=== PATIENT | female | born 1940 | race Caucasian/White ===

== ENCOUNTER 2016-12-06 00:11 | Day surgery (SDC) | payer MEDICARE, OTHER ==
[~2016-12-06] VITALS: Ht 160 cm; Wt 80.7 kg
[2016-12-06] VITALS (13 sets, daily range): BP systolic 117–154; BP diastolic 50–78; PULSE 52–63; RESP 16–20; O2SAT 92–98
[~2016-12-06 00:11] MED LIST: ACET-2605 PO; ALBU8.5H2 IH; AMLO2.5T PO; ASPI81TA3 PO; BECL8.7A6 IH; CARV6.252 PO; CELE200C PO; CREST10T PO; DOCU-41 PO; DULO60CA42 PO; ESOM40CA41 PO; FURO40TA4 PO; HYDR-3825 PO; LEVO75TA36 PO; LISI2.5T PO; MULT-1018 PO; PREG300C PO; SOLI5TAB2 PO; SPIR25TA3 PO; TRAZ-118 PO; VITA1TAB47 PO
[2016-12-06 12:34] LABS: BASOPHILS % (AUTO) 0.7 % (0-3); EOSINOPHILS % (AUTO) 3.9 % (0-5); MONOCYTES % (AUTO) 14.1 % (4-12); Mean Corpuscular Hemoglobin 31.7 pg (27.0-35.0); Mean Corpuscular Volume 93.1 fL (81-100); NEUTROPHILS % (AUTO) 45.9 % (40-74); Platelet Count 202 bil/L (150-400)
[2016-12-06] MEDS ORDERED: LEVO112T4 PO (13:10)
[2016-12-06] MEDS ORDERED: Heparin 1,000 Unit/mL 10 mL Inj ONE (14:41)
[2016-12-06] MEDS ORDERED: Nitroglycerin 50,000 mcg/250 mL D5W Premix IV ONE (14:41)
[2016-12-06] MEDS ORDERED: Heparin 1,000 Units/500 mL NS Premix IV ONE (14:41)
[2016-12-06] MEDS ORDERED: Heparin 10,000 Unit/1,000 mL NS Premix IV ONE (14:41)
[2016-12-06] MEDS ORDERED: fentaNYL-PF 50 mCg/mL 2 mL Inj ONE (14:52)
--- NOTE | 2016-12-06 17:07 | PCM.CVCATH ---
Cardiac Cath Report Date of Service Dec 06, 2016 Primary Indication Abnormal stress test Procedure coronary angiography, left heart cath Vascular Access Right femoral artery using 6 Fr sheath, closure with manual hold. Diagnostic Catheters Left main: [place] 4.0, 6 Fr RCA: [place] 4.0, 6 Fr Procedure Details Coronary angiography details: The patient was brought to the cardiac catheterization lab in the fasting state. Patient was laid supine on the cardiac catheterization table and the right groin was prepped and draped in the usual sterile fashion. One percent Xylocaine was infiltrated into the right femoral vessels. Next, a sheath was then placed in the right common femoral artery by the modified Seldinger technique. Guide wire was used to advance the catheter through the sheath and up into aortic sinuses. After coronary angiography was completed, guide wire was advanced through the catheter ahead of the tip of the catheter and the guide wire along with the catheter were pulled together out of the sheath. Medications/Fluoro Time Medications administered: 1.Fentanyl: 50 mcg IV 2. Midazolam: 1 mg IV 3. Heparin: 0 units IV 4. Nitroglycerin: 0 mcg IA 5. Verapamil: 0 mg IA Blood loss: 10 mls Findings 1) Coronary angiography: Right dominance a. Left main is short and angiographically normal b. LAD is normal caliber with mild luminal irregularities with maximal stenosis of about 25-30% in the proximal to mid vessel. There are four diagonal arteries with no significant angiographic disease. c. LCx is medium caliber vessel with mild luminal irregularities. d. RCA is normal caliber with patent stent with about 25% stenosis in the proximal vessel. The stent has diffuse mild in-stent restenosis. 2) Left Heart catheterization: a. LVEDP is elevated at 19 mmHg. b. No significant transaortic gradient on catheter pull-back. Complications There were no periprocedural complications identified. Summary 1) Non-obstructive coronary artery disease. 2) Mildly elevated left sided filling pressures with LVEDP of 19mmHg. Recommendations Continue with medical management of CAD and HTN. copies to: Nhan Colin MD, Bhrigu R MD Dec 06, 2016 17:07
--- NOTE | 2016-12-06 18:30 | NUR ---
Pt transferred to [facility] room 2002, Rt groin site cdi with no bleeding/hematoma noted, IV infusing NS @ 100ml/hr, VSS. Report and pt handoff given to Pau RAMSAY.
[2016-12-06] MEDS ORDERED: Sodium Chloride LOK Flush 10 mL Syringe IVFLUSH PRN (18:35)
[2016-12-06] MEDS ORDERED: Atropine 1 mg/10 mL (Code) Syringe IVPUSH PRN (18:35)
[2016-12-06] MEDS ORDERED: 0.9% Sodium Chloride 400 ML (4 HRS) IV ONE (18:35)
[2016-12-06] MEDS ORDERED: 0.9% Sodium Chloride 250 ML BOLUS IV PRN (18:35)
[2016-12-06] MEDS ORDERED: Ondansetron 2 mg/mL 2 mL Inj IVPUSH PRN (18:35)
[2016-12-06] MEDS ORDERED: HYDROcodone-APAP 7.5-325 mg Tablet PO PRN (22:00)
--- NOTE | 2016-12-07 03:35 | NUR ---
Groinsite/pain/Tele Groinsite CDI, , minimal discomfort, C/O generalized 6/10 chronic pain, called [employer] to get home meds ordered , 7.5 Vicodin Q4 , INfused 400 Ml NS. A&O x3 using call light appropriately, on room air , SL after NS infusion. sleeping after restless afternoon. Tele S- SB, 13-70
[2016-12-07 04:26] VITALS: BP 146/73; PULSE 55; RESP 18; O2SAT 96
[2016-12-07 05:18] VITALS: PULSE 69
[2016-12-07 08:13] VITALS: BP 142/78; PULSE 60; RESP 16; O2SAT 97
[2016-12-07 08:32] VITALS: PULSE 80
--- NOTE | 2016-12-07 09:47 | PCM.DIMED ---
Discharge Instructions Date of Service Dec 07, 2016 Dates of Hospitalization 12/06/2016 Discharge Diagnosis Discharge Diagnosis Non-obstructive coronary artery disease Diet Discharge Diet: Low fat, Low Sodium Activity Discharge Activity: Other (no lifting of weight more than 5 pounds for one week ) Call your provider Call your provider for: Bleeding Patient Instructions Provider: Arnold Lindsay MD Follow-up in: 4 weeks Arnold Lindsay MD Dec 07, 2016 09:47
--- NOTE | 2016-12-07 10:52 | NUR ---
Discharge Pt. discharged to home via private vehicle at 1050 in stable condition. driving. All belongings and instructions with pt. No new scripts. Tele and IV's dc'd prior to discharge. No questions or concerns at this time.
== END 2016-12-07 10:40 | disposition home or self-care (01) ==
LOC: SOUO 00:11 → PCC 18:27 → SOUO 12-07 10:40
PROVIDERS: ATTEND Internal Medicine Cardiovascular Disease
DX: I25.10 Atherosclerotic heart disease of native coronary artery without angina pectoris (principal); Z95.5 Presence of coronary angioplasty implant and graft; E78.5 Hyperlipidemia, unspecified; I35.1 Nonrheumatic aortic (valve) insufficiency; M79.7 Fibromyalgia; E03.9 Hypothyroidism, unspecified; I44.7 Left bundle-branch block, unspecified; I77.810 Thoracic aortic ectasia; Z82.49 Family history of ischemic heart disease and other diseases of the circulatory system; Z79.82 Long term (current) use of aspirin
CPT/HCPCS: 36415; 80048; 85025; 93458; 99152; 99153; C1769; J1644; J2250; J3010; J7030; Q9967